=== PATIENT | female | born 1930 | race Caucasian/White ===

== ENCOUNTER 2017-03-07 12:28 | Emergency (ER) | payer MEDICARE, MEDICAID ==
[~2017-03-07] VITALS: Ht 152.4 cm; Wt 66.8 kg
[~2017-03-07 12:28] MED LIST: ACID1TAB7 PO; AMLO2.5T2 PO; ATOR10TA PO; CEFD300C37 PO; FURO-92 PO; TRAZ50TA18 PO
[2017-03-07 13:59] LABS: ASPARTATE AMINO TRANSFERASE 37 U/L (15-37); BLOOD UREA NITROGEN 13 mg/dL (7-18)
[2017-03-07 14:06] LABS: IS PT STATUS REG ER OR PRE ER? YES
[2017-03-07 15:41] VITALS: BP 140/72
== END 2017-03-07 15:43 | disposition home or self-care (01) ==
LOC: ED 13:08
DX: R55 Syncope and collapse (principal); I10 Essential (primary) hypertension; I25.10 Atherosclerotic heart disease of native coronary artery without angina pectoris; Z85.3 Personal history of malignant neoplasm of breast; Z95.1 Presence of aortocoronary bypass graft
CPT/HCPCS: 36415; 70450; 71010; 80053; 83880; 84484; 85025; 93005; 99285

== ENCOUNTER 2017-08-28 07:20 | Emergency (ER) | payer MEDICARE, MEDICAID ==
[~2017-08-28] VITALS: Ht 160 cm; Wt 65.0 kg
[2017-08-28 08:01] LABS: HEMATOCRIT 44.1 % (34.6-47.8); HEMOGLOBIN 15.2 g/dL (11.7-16.4); WHITE BLOOD COUNT 8.8 x10^3/uL (3.4-10)
[2017-08-28 08:12] LABS: ASPARTATE AMINO TRANSFERASE 24 U/L (15-37); BLOOD UREA NITROGEN 13 mg/dL (7-18)
[2017-08-28 08:23] LABS: IS PT STATUS REG ER OR PRE ER? YES
[2017-08-28 10:27] VITALS: BP 129/67
== END 2017-08-28 12:23 | disposition home or self-care (01) ==
LOC: ED 10:35
DX: S60.212A Contusion of left wrist, initial encounter (principal); S20.212A Contusion of left front wall of thorax, initial encounter; I25.10 Atherosclerotic heart disease of native coronary artery without angina pectoris; Z95.1 Presence of aortocoronary bypass graft; I10 Essential (primary) hypertension; W19.XXXA Unspecified fall, initial encounter; Y93.89 Activity, other specified; Y99.8 Other external cause status; Y92.009 Unspecified place in unspecified non-institutional (private) residence as the place of occurrence of the external cause
CPT/HCPCS: 36415; 70450; 71020; 72125; 80053; 81001; 84484; 85025; 87077; 87086; 87186; 93005; 99285